=== PATIENT | female | born 1975 | race Caucasian/White ===

== ENCOUNTER 2018-10-01 05:57 | Day surgery (SDC) | payer MEDICAID, SELFPAY ==
[2018-10-01] VITALS (14 sets, daily range): BP systolic 115–146; BP diastolic 70–82; PULSE 80–113; RESP 16–18; TEMP 36.8–38.4; O2SAT 90–96; BMI 39.8
--- NOTE | 2018-10-01 07:20 | RAD_ITS ---
STUDY: X-RAY - RIGHT ANKLE REASON FOR EXAM: Female, 43 years old. ORIF right ankle TECHNIQUE: 11 view(s) of the ankle. COMPARISON: None. FINDINGS: Internal fixation of Trimalleolar fracture in good alignment. The soft tissue structures are unremarkable. RAD/Ankle min 3 Views IMPRESSION: Internal fixation of Trimalleolar fracture in good alignment. Electronically Signed: Lien Villafuerte, at 11:35 EDT Tel , Service support ,
[2018-10-01] MEDS: Cefazolin 2 GM in 0.9% Normal Saline 100 ML IV (07:38)
--- NOTE | 2018-10-01 13:49 | RAD_ITS ---
STUDY: X-RAY - RIGHT ANKLE REASON FOR EXAM: Postop. TECHNIQUE: 3 view(s) of the ankle. COMPARISON: None. FINDINGS: There is an orthopedic plate and screws transfixing a distal fibular fracture in anatomical alignment and position. There are screws in the distal tibia transfixing medial malleolar and posterior malleolar fractures in anatomical alignment and position. Normal tibiotalar articulation and ankle mortise. Normal visualized talus and calcaneus. The visualized subtalar, talonavicular, calcaneocuboid and tarsal articulations are normal. There is soft tissue swelling. There is an overlying cast. RAD/Ankle min 3 Views IMPRESSION: ORIF of trimalleolar fracture. Electronically Signed: Sohail Sapp MD at 8:57 EDT Tel , Service support ,
--- NOTE | 2018-10-01 13:50 | RAD_ITS ---
We are attempting to reach Charlie Muse to discuss findings. An addendum with communication details will be sent when the communication is complete. STUDY: X-RAY - RIGHT TIBIA AND FIBULA REASON FOR EXAM: Female, 43 years old. Postoperative evaluation. Case was discussed with Dr. Guerra. TECHNIQUE: 2 view(s) of the tibia and fibula were obtained. COMPARISON: None. FINDINGS: Bone harvest site at the proximal tibia. Right distal tibial and fibular surgical fixation hardware intact/well aligned. Fracture fragments in near-anatomic alignment. No acute complications identified. No dislocation. Postoperative soft tissue swelling. Cast. RAD/Tibia & Fibula 2 Views IMPRESSION: Uncomplicated casted right ankle ORIF Fracture fragments in near-anatomic alignment Electronically Signed: Eduardo Rhodes DO at 10:11 EDT Tel , Service support ,
--- NOTE | 2018-10-01 13:58 | DCINST_ITS ---
Discharge Activity: May Not Drive, May not drive while taking narcotic pain medications., May Not Shower, Use Walker, Use Crutches Ice area for (Minutes): 20 - apply ice behind right knee 20 minutes of each hour while awake Weight Bearing Status: No weight bearing Keep extremity elevated above heart level: Operative Extremity Call your doctor if your incision/area has: Sudden Increased Bleeding Call your doctor if you observe: Fever of 101 or Higher, Inability to urinate, Shortness of breath, Dizziness, Chest pain, Increased palpitations (irregular heartbeat), Calf discomfort, Uncontrolled pain Cleanse incision/area with: Keep Dressing Clean & Dry Allergies/Adverse Reactions: Allergies No Known Allergies Allergy (Verified 09/24/18 09:47) Medications to take at Discharge Acetaminophen [Tylenol] 500 - 1,000 mg PO Q6H PRN PRN 09/24/18 Aspirin 325 mg PO DAILY@0800 09/24/18 Gabapentin [Neurontin] 300 mg PO Q12H PRN PRN 09/24/18 Loratadine [Claritin] 10 mg PO DAILY 09/24/18 Oxycodone [Oxyir] 5 mg PO Q6H PRN PRN 7 Days #30 tab 10/01/18 The following prescriptions were given: Oxycodone [Oxyir] 5 mg PO Q6H PRN PRN 7 Days #30 tab PRN Reason: Pain Primary Care Physician: Avelina La NP-C [Primary Care Provider] - Test Results: Test results from this visit will be discussed in further detail at your follow- up appointment, if applicable. Please Follow Up With: Almaz Guerra DPM - Please follow up at your previously scheduled post operative appointment Proposed Discharge Date: 10/01/18
--- NOTE | 2018-10-01 13:58 | PCM.OPRPT ---
Report of Operation Date of Procedure: 10/01/18 Pre-Operative Diagnosis: Right posterior variant pilon fracture, R medial malleolus fracture, R ankle dislocation Post-Operative Diagnosis: same Surgery/Procedure Performed:: Right ORIF posterior varient pilon w/ fixation of the tibia and fibula; R ORIF medial malleolus; R bone marrow aspiration for autologous transfer from proximal tibia continuous mining machine operator: Geovanna Washburn Type of Anesthesia:: General/Regional Estimated Blood Loss (mL): 250mL Description of Procedure: Indications: Pt is a 43 yo F who sustained a R ankle fracture and dislocation while at home after a fall on 09/15/18. She was seen in an OSH ER on the day of injury where radiographs revealed a significant, comminuted fracture of her ankle with dislocation. She was reduced and splinted until she was seen in my clinic. I then sent her for a CT scan to better evaluate her fracture for surgical planning. She was seen by her PCP for medical clearance and risk stratification prior to surgical intervention All risks, complications, and alternatives were discussed with the patient, and the patient signed an informed consent. No guarantees were given. Procedure: On 10/01/2018, Erin Figueroa was visually and verbally identified in the preoperative holding area. The consent form was again reviewed with the patient, as were all risks, complications, and alternatives and the patient wished to proceed with the proposed surgery. The right ankle was marked as the correct operative extremity. The patient was brought to the operating room and placed on the operating room table in the lazy lateral position. After induction by anesthesia, a surgical time out was performed and all present were in agreement. a pneumatic thigh tourniquet was then placed. At this time the right lower extremity was prepped and draped in the usual sterile fashion. after exsanguination with an esmarch the tourniquet was inflated to 300 mmHg. At this time attention was directed to the posterolateral ankle midway between the Achilles and peroneal tendons. The incision was bluntly carried deep through the subcutaneous tissues with careful attention paid to all bleeders, which were clamped and tied or bovied as necessary. All vital neurovascular structures were retracted. The dissection was carried to the posterior tibia, with retraction of the FHL to protect medial structures. Using intraoperative fluoroscopy and direct visualization the posterior tibia fracture was identified. Using a combination of a scalpel, osteotomes and curettes the fracture was freshened and all impinging soft tissue was removed. The fracture was reduced and this was confirmed on intraoperative fluoroscopy. A guidewire was placed from posterior to anterior and what appeared to be nearly parallel to the tibiotalar joint. Once the screw was measured and placed per AO technique, I felt that the anterior portion of the screw may be in the ankle joint or impinging on it so I removed this screw and repositioned my guidewires. Again, following AO technique I placed two cannulated partially threaded screw from posterior to anterior with confirmation that they did not enter ankle joint. This was confirmed on intraoperative fluoroscopy on multiple views. I then turned my attention to the fibula. blunt dissection was continued with care taken to protect all neurovascular structures and retraction of the peroneals tendons. The fracture was noted to be fragmented, comminuted, and displaced. The fibula was shortened. I was able to distract and reduce the fracture manually however I did not feel the I was getting reduction of the tibiotalar joint or medial clear space. So I turned my attention to the medial ankle Using a #15 blade, I made a curvilinear incision over the medial malleolus and the displaced fracture. Dissection was bluntly carried deep with care taken to retract all neurovascular structures. The displaced transverse fracture of the medial malleolus was easily identified. I did not see the vertical fracture of the medial malleolus as seen on the CT scan and therefore felt it was in optimal position and would not need additional fixation beyond the screw fixation for the displaced transverse fracture. I used a combination of ronguers and a scalpel to remove all impinging soft tissue of the medial malleolus fracture line. I was able to distract and reduce the fracture. This was held with guidewires. I then placed two [place] cannulated screws nearly parallel, per AO technique. Good fixation was noted. I then turned my attention to the proximal tibia for Bone marrow aspiration harvest. An incision was made with a #15 blade just distal and medial to the tibial tuberosity. Using the [employer] system I was able to harvest bone marrow aspiration for autologus transplantation to my fracture sites in the ankle. This was then packed with [place] Hydroset and the residual BMA at the end of the case. This was then closed to 3.0 prolene. The BMA was mixed with Marito Bio4 and packed into the medial malleolus fracture and later would be packed into the fibular fractures. Attention was returned to the lateral ankle. The fibula was distracted and reduced with length restored. This was then plated with [place] Variax plate and a combination of locking and nonlocking screws. good fixation was noted. The incision was carefully flushed with care taken to not wash out the BMA at the fractures. A stress view to evaluate the syndesmosis and medial space was obtained with minimal instability noted. Given these stress views and the comminution of the fibula I do not think at this time transyndesmotic fixation is a viable option at this time. IF she does have instability she may need additional fixation of the syndesmosis in the future when her fibula is healed. closure was then initiated with 2.0 vicryl used for deep tissues, 3.0 ivcryl for subcutaneous tissue and 3.0 prolene for skin. Betadine soaked adaptic with dry sterile dressings were placed at the incisions, An Optsite was used to cover the proximal tibia incision. A multi layer compressive dressing and a well padded posterior splint was applied. Total tourniquet time was 240 minutes with immediate capillary refill noted to all digits upon deflation. Intra operative fluoroscopy was utilized throughout the case, > 1 hour, to aid in visualization and confirmation of fracture reduction and screw and plate fixations. Interpretation of the images was vital to my decision making process. The patient tolerated the procedure and anesthesia well. The patient was then transported to the postanesthesia care unit by a member of the anesthesia team and myself with all vital signs stable and neurovascular status of the right lower extremity equal to pre-operative levels. Patient will receive a RLE block by anesthesia in the PACU. At the end of the case all sponge, needle and instrument counts were found to be correct. Grafts/Implants Used: [place] plate and screws, Marito Bio4, Marito Hydroset - Complications none - Admit VTE Documentation VTE Present on Admission: No VTE Mechan Device Prophylaxis: SCD's, Knee High ELISEO Hose VTE Pharm Prophylaxis ordered?: Yes
== END 2018-10-01 18:26 | disposition home or self-care (01) ==
LOC: SDC 05:58 → AC 06:00
PROVIDERS: Family Provider Registered Nurse; PCP Registered Nurse; Referring Provider Podiatrist Foot & Ankle Surgery; Visit Provider Podiatrist Foot & Ankle Surgery
PROC: (CPT 20999; principal; 2018-10-01 07:10)
DX: S82.871A Displaced pilon fracture of right tibia, initial encounter for closed fracture (principal); S82.51XA Displaced fracture of medial malleolus of right tibia, initial encounter for closed fracture; K21.9 Gastro-esophageal reflux disease without esophagitis; Z87.891 Personal history of nicotine dependence; Z79.82 Long term (current) use of aspirin; Z79.891 Long term (current) use of opiate analgesic; W18.39XA Other fall on same level, initial encounter; Y93.89 Activity, other specified; Y92.008 Other place in unspecified non-institutional (private) residence as the place of occurrence of the external cause; Y99.8 Other external cause status
CPT/HCPCS: 20999; 27766; 27828; 73590; 73610; 76000; C1713; J7120; J2405